=== PATIENT | male | born 1940 | race Asian ===

== ENCOUNTER 2024-04-22 12:39 | Emergency (ER) | payer MEDICARE, OTHER ==
[~2024-04-22] VITALS: Ht 165.1 cm; Wt 22.7 kg
[~2024-04-22 12:39] MED LIST: ACID1TAB4 CHEW; CHOL200018 PO; DSS100 PO; LEVO-72 PO; METR500 PO; MULT-1192 PO; OMEP20 PO; PERCT PO
[2024-04-22 12:50] VITALS: TEMP 98.7
[2024-04-22] MEDS ORDERED: SERT-438 PO (12:57)
[2024-04-22] MEDS ORDERED: ATOR20TA65 PO (12:57)
[2024-04-22] MEDS ORDERED: AMLO5TAB66 PO (12:57)
[2024-04-22] MEDS ORDERED: DONE-52 PO (12:57)
[2024-04-22] MEDS: SODIUM CHLORIDE 0.9% 1,000 ML IV ONE (13:09)
[2024-04-22 13:16] LABS: BASOPHILS % (AUTO) 0.9 % (0.0-2.0); HEMOGLOBIN 13.3 g/dL (13.5-17.5); LYMPHOCYTES # (AUTO) 2.3 K/uL (1.0-4.8); LYMPHOCYTES % (AUTO) 28.8 % (22.0-44.0); MEAN CORPUSCULAR HEMOGLOBIN 30.8 pg (26.0-34.0); MEAN CORPUSCULAR HGB CONC 33.2 G/dL (31.0-37.0); MEAN CORPUSCULAR VOLUME 93 fL (80-100); MONOCYTES # (AUTO) 0.6 K/uL (0.1-1.0); NEUTROPHILS # (AUTO) 2.4 K/uL (1.8-7.7); NEUTROPHILS % (AUTO) 29.4 % (40.0-70.0); PLATELET COUNT (AUTO) 146 K/uL (150-450); RED BLOOD CELL COUNT(AUTO) 4.31 MIL/uL (4.50-5.90); RED CELL DISTRIBUTION WIDTH 14.7 % (11.5-14.5)
[2024-04-22 13:18] LABS: EOSINOPHILS % (AUTO) 32.9 % (1.0-6.0)
[2024-04-22 13:27] LABS: CREATININE 1.2 mg/dL (0.60-1.30); POTASSIUM 3.5 mmol/L (3.5-5.1)
[2024-04-22 13:28] LABS: CALCIUM, TOTAL 8.5 mg/dL (8.8-10.5)
[2024-04-22 13:32] LABS: TROPONIN I-HIGH SENSITIVITY 10 ng/L (<76)
[2024-04-22 14:08] VITALS: BP 132/69; PULSE 75; RESP 18; O2SAT 99
== END 2024-04-22 14:21 | disposition home or self-care (01) ==
LOC: EMS 12:39
DX: R55 Syncope and collapse (principal); E11.9 Type 2 diabetes mellitus without complications; E78.00 Pure hypercholesterolemia, unspecified; I10 Essential (primary) hypertension; Z90.49 Acquired absence of other specified parts of digestive tract
CPT/HCPCS: 99285; 96360; 70450; 71045; 80048; 83880; 84484; 85025; 36415; 93005; J7030

== ENCOUNTER 2025-01-10 17:17 | Emergency (ER) | payer MEDICARE, OTHER ==
[~2025-01-10] VITALS: Ht 154.9 cm; Wt 51.4 kg
[~2025-01-10 17:17] MED LIST changes: -ACID1TAB4 CHEW; +AMLO5TAB66 PO; +ATOR20TA65 PO; -CHOL200018 PO; +DONE-52 PO; -DSS100 PO; -LEVO-72 PO; -METR500 PO; -MULT-1192 PO; -OMEP20 PO; -PERCT PO; +SERT-438 PO
[2025-01-10 17:20] VITALS: TEMP 98.1
[2025-01-10 17:48] LABS: PLATELET COUNT (AUTO) 185 K/uL (150-450); RED BLOOD CELL COUNT(AUTO) 4.80 MIL/uL (4.50-5.90); RED CELL DISTRIBUTION WIDTH 13.9 % (11.5-14.5); WHITE BLOOD COUNT (AUTO) 10.3 K/uL (4.5-11.0)
[2025-01-10 17:58] LABS: CALCIUM, TOTAL 9.1 mg/dL (8.8-10.5); CREATININE 1.04 mg/dL (0.60-1.30); GLOMERULAR FILTR. RATE CALC > 60 mL/min (>60); GLUCOSE,RANDOM 136 mg/dL (70-110); SODIUM SERUM 140 mmol/L (136-145); UREA NITROGEN, BLOOD 10 mg/dL (7-18)
[2025-01-10 18:06] LABS: TROPONIN I-HIGH SENSITIVITY 16 ng/L (<76)
[2025-01-10 19:08] LABS: APPEARANCE,URINE CLEAR (CLEAR); GLUCOSE, URINE (UA) NEGATIVE (NEGATIVE); LEUKOCYTE ESTERASE ,URINE NEGATIVE (NEGATIVE); NITRATE,URINE NEGATIVE (NEGATIVE); OCCULT BLOOD,URINE NEGATIVE (NEGATIVE); SPECIFIC GRAVITIY, URINE 1.008 (1.003-1.030)
[2025-01-11 00:47] VITALS: BP 145/72; PULSE 70; RESP 14; O2SAT 96
== END 2025-01-11 01:01 | disposition home or self-care (01) ==
LOC: EMS 17:19
DX: R10.11 Right upper quadrant pain (principal); R11.2 Nausea with vomiting, unspecified; E11.9 Type 2 diabetes mellitus without complications; E78.00 Pure hypercholesterolemia, unspecified; I10 Essential (primary) hypertension; Z90.49 Acquired absence of other specified parts of digestive tract; Z79.899 Other long term (current) drug therapy
CPT/HCPCS: 71045; 74176; 80048; 81003; 83690; 84484; 85025; 93005; 99285; 36415-L1; 36415-TC